=== PATIENT | female | born 1995 | race Hispanic/Latino ===

== ENCOUNTER 2025-07-17 12:25 | Emergency (ER) | payer OTHER ==
[~2025-07-17 12:25] MED LIST: Iopamidol-370 76% 500 ML MDV (1 ML CHARGE) ONE
[2025-07-17] MEDS ORDERED: Ondansetron PF 4 MG/2 ML Vial ONE (12:50)
[2025-07-17 13:02] LABS: #Basophils 0.03 10x3/uL (0.0-0.2); #Eosinophils Less than 0.03 10x3/uL (0.0-0.7); #Monocytes 2.20 10x3/uL (0.11-0.59); #Neutrophils 12.95 10x3/uL (1.40-6.50); %Basophils 0.2 % (0.0-1.0); %Eosinophils 0.1 % (0.0-10.0); %Lymphocytes 16.0 % (21.0-51.0); %Monocytes 12.1 % (0.0-10.0); %Neutrophils 71.2 % (42.0-75.0); Hematocrit 49.7 % (36.0-47.0); Hemoglobin 17.5 g/dL (12.0-16.0); Mean Corpuscular Hemoglobin 29.7 pg (27.0-31.0); Mean Corpuscular Volume 84.4 fL (78.0-98.0); Platelet Count 312 10x3/uL (130-400); Red Blood Cell (RBC) Count 5.89 mill/uL (4.20-5.40); White Blood Cell (WBC) Count 18.19 10x3/uL (4.8-10.8)
[2025-07-17 13:18] LABS: ALT (SGPT) 47 U/L (Less than 34); AST (SGOT) 36 U/L (11-34); Albumin 4.3 g/dL (3.1-4.5); Alkaline Phosphatase 84 U/L (40-110); Anion Gap 23 mmol/L (10-20); BUN (Urea Nitrogen) 24 mg/dL (7.0-18.7); Bilirubin, Total 2.3 mg/dL (0.3-1.2); Calc. Creatinine Clearance 0 mL/min (70-130); Calcium 9.8 mg/dL (7.8-10.44); Carbon Dioxide 30 mmol/L (22-29); Chloride 81 mmol/L (98-107); Globulin 4.4 g/dL (2.4-3.5); Glucose 137 mg/dL (70-105); Lipase 23 U/L (8-78); Potassium 2.7 mmol/L (3.5-5.1); Sodium 131 mmol/L (136-145)
[2025-07-17 13:25] LABS: BHCG - Serum Negative (NEGATIVE); Pregs Control Background? CLEAR/WHITE (CLR/WHITE); Pregs Control Bar Appear? YES (CONTROL BAR)
[2025-07-17] MEDS ORDERED: Metoclopramide HCl 10 MG (2 mL) VIAL ONE (13:27)
[2025-07-17 13:50] LABS: Bacteria/HPF None Seen HPF (None Seen); CAUTI Indications for Culture Acute Hematuria; Glucose, Urine (Dipstick) 30 mg/dL (Negative); Leukocyte Negative Leu/uL (Negative); Protein, Urine (Dipstick) 100 mg/dL (Neg-Trace); Specific Gravity, Urine 1.030 (1.002-1.036)
[2025-07-17 13:55] LABS: Urine Culture Reflex No No
[2025-07-17] MEDS ORDERED: cefTRIAXone (ROCEPHIN) 1 GM VIAL ONE (16:13)
== END 2025-07-17 18:00 | disposition home or self-care (01) ==
LOC: ERS 12:25
DX: K92.0 Hematemesis (principal); E87.6 Hypokalemia; N39.0 Urinary tract infection, site not specified; F17.200 Nicotine dependence, unspecified, uncomplicated
CPT/HCPCS: 36415; 74177; 80053; 81001; 83605; 83690; 84703; 85025; 87040; 96361; 96365; 96367; 96375; J0696; J2405; J2765